=== PATIENT | female | born 1975 | race Caucasian/White ===

== ENCOUNTER → 2017-07-25 | Outpatient (CLI) | payer OTHER ==
[~2017-07-25] MED LIST: CEPHALEXIN 500500 M3 PO; HYDROCODONE-AP1 EAC6 PO; IBUPROFEN 800800 M1 PO; NOHOMEMEDICATIONS; ONDANSETRON HCL4 M2 PO; PRILOSEC 20 MG20 MG PO
== END ==
LOC: M.RAD 13:24
DX: M25.522 Pain in left elbow (principal)

== ENCOUNTER → 2017-09-15 | Outpatient (CLI) | payer OTHER | LOC: M.MRI 15:54 | DX: M77.12 Lateral epicondylitis, left elbow (principal) ==